=== PATIENT | female | born 1940 | race Caucasian/White ===

== ENCOUNTER 2018-02-25 03:45 | Inpatient (IN) | payer SELFPAY ==
[~2018-02-25] VITALS: Ht 165.1 cm; Wt 62.0 kg
[2018-02-25 05:07] LABS: BASOPHIL % 0.2 % (0-2); PLATELET COUNT 168 x10^3mcL (130-400)
[2018-02-25 05:49] LABS: CARBON DIOXIDE 21.8 mmol/L (21-32); CHLORIDE SERUM 91 mmol/L (98-107); GLUCOSE SERUM 222 mg/dL (74-106); POTASSIUM SERUM 4.4 mmol/L (3.5-5.1); TOTAL PROTEIN, SERUM 7.2 g/dL (6.4-8.2)
[2018-02-25 05:51] LABS: AST/SGOT 23 U/L (15-37); BILIRUBIN TOTAL 0.58 mg/dL (0.20-1.00); CALCIUM 9.2 mg/dL (8.5-10.1)
[2018-02-25 05:52] LABS: ALKALINE PHOSPHATASE 180 U/L (46-116); ALT/SGPT 43 U/L (14-59); LIPASE 253 IU/L (73-393)
[2018-02-25] MEDS ORDERED: LOSARTAN POTASS50 M1 PO (06:43)
[2018-02-25] MEDS ORDERED: HALCION0.25 MG PO (06:43)
[2018-02-25] MEDS ORDERED: CITALOPRAM HYDR20 M1 PO (06:44)
[2018-02-25] MEDS ORDERED: METFORMIN HCL850 MG PO (06:44)
[2018-02-25] MEDS ORDERED: TEGRETOL200 MG PO (06:44)
[2018-02-25 07:44] VITALS: Ht 165.1 cm; Wt 62.0 kg
[2018-02-25 07:49] LABS: CHOLESTEROL/HDL RATIO 3.4; MAGNESIUM 1.5 mg/dL (1.8-2.4); PHOSPHOROUS 3.4 mg/dL (2.5-4.9)
[2018-02-25 08:06] LABS: FREE T4 1.04 ng/dL (0.76-1.46); FREE THYROXINE INDEX 2.3 ug/dL (1.4-4.5); T4(THYROXINE) 6.9 ug/dL (4.7-13.3)
[2018-02-25 08:11] LABS: T3 TOTAL 0.97 ng/mL
[2018-02-25 09:03] VITALS: BP 111/53
[2018-02-25 09:54] LABS: BASOPHIL % 0 % (0-2); PLATELET COUNT 132 x10^3mcL (130-400); RED CELL DISTRIBUTION WIDTH 14.1 % (11.5-14.5)
[2018-02-25 12:03] VITALS: BP 95/43
[2018-02-25 13:14] LABS: CALCIUM 8.7 mg/dL (8.5-10.1); CARBON DIOXIDE 23.7 mmol/L (21-32); CHLORIDE SERUM 98 mmol/L (98-107); CREATININE SERUM 0.8 mg/dL (0.6-1.0); GLUCOSE SERUM 194 mg/dL (74-106); POTASSIUM SERUM 4.9 mmol/L (3.5-5.1); SODIUM SERUM 129 mmol/L (136-145)
[2018-02-25 14:37] LABS: SODIUM SERUM 121 mmol/L (136-145)
[2018-02-25 16:58] VITALS: BP 139/65
[2018-02-25 18:17] VITALS: BP 118/45
[2018-02-25 18:57] LABS: BASOPHIL % 0.4 % (0-2); PLATELET COUNT 150 x10^3mcL (130-400); RED CELL DISTRIBUTION WIDTH 14.4 % (11.5-14.5)
[2018-02-25 20:07] VITALS: BP 89/53
[2018-02-26 05:27] VITALS: BP 114/52
[2018-02-26 07:47] LABS: CALCIUM 7.8 mg/dL (8.5-10.1); CARBON DIOXIDE 23.1 mmol/L (21-32); CHLORIDE SERUM 101 mmol/L (98-107); CREATININE SERUM 0.7 mg/dL (0.6-1.0); GLUCOSE SERUM 106 mg/dL (74-106); MAGNESIUM 1.7 mg/dL (1.8-2.4); SODIUM SERUM 132 mmol/L (136-145)
[2018-02-26 07:53] LABS: BASOPHIL % 0.2 % (0-2); PLATELET COUNT 133 x10^3mcL (130-400)
[2018-02-26 07:57] LABS: RED CELL DISTRIBUTION WIDTH 14.7 % (11.5-14.5)
[2018-02-26 08:20] VITALS: BP 124/56
[2018-02-26 13:24] VITALS: BP 103/53
[2018-02-26 17:39] VITALS: BP 93/46
[2018-02-26 21:12] VITALS: BP 97/41
[2018-02-27 04:48] VITALS: BP 135/54
[2018-02-27 07:01] LABS: CALCIUM 8.5 mg/dL (8.5-10.1); CARBON DIOXIDE 21.3 mmol/L (21-32); CHLORIDE SERUM 102 mmol/L (98-107); CREATININE SERUM 0.7 mg/dL (0.6-1.0); GLUCOSE SERUM 201 mg/dL (74-106); MAGNESIUM 1.5 mg/dL (1.8-2.4); PHOSPHOROUS 2.9 mg/dL (2.5-4.9); POTASSIUM SERUM 3.8 mmol/L (3.5-5.1); SODIUM SERUM 132 mmol/L (136-145)
[2018-02-27 07:04] LABS: BASOPHIL % 0.5 % (0-2)
[2018-02-27 07:44] LABS: BILIRUBIN DIRECT 0.11 mg/dL (0.0-0.2); BILIRUBIN TOTAL 0.34 mg/dL (0.20-1.00)
[2018-02-27 07:45] LABS: ALBUMIN 2.5 g/dL (3.4-5.0); TOTAL PROTEIN, SERUM 5.8 g/dL (6.4-8.2)
[2018-02-27 08:39] VITALS: BP 115/47
[2018-02-27 08:48] LABS: PLATELET COUNT 122 x10^3mcL (130-400)
[2018-02-27 12:37] VITALS: BP 118/46
[2018-02-27] MEDS ORDERED: FER300 PO (14:17)
[2018-02-27] MEDS ORDERED: LAC30L PO (14:21)
[2018-02-27] MEDS ORDERED: IND20 PO (14:22)
[2018-02-27] MEDS ORDERED: PROTONIX40 MG/Pac1 PO (14:24)
[2018-02-27] MEDS ORDERED: GLIMEPIRIDE2 M1 PO (14:34)
[2018-02-27] MEDS ORDERED: VITAMIN C PURE500 MG PO (14:36)
[2018-02-27 15:54] VITALS: BP 118/46
== END 2018-02-27 18:15 | disposition home or self-care (01) | DRG 432 ==
LOC: ED 03:45 → DU 05:01 → IC 05:01 → DU 18:00
PROVIDERS: Emergency Medicine; Internal Medicine; Internal Medicine Gastroenterology
PROC: 06L38CZ Occlusion of Esophageal Vein with Extraluminal Device, Via Natural or Artificial Opening Endoscopic (ICD-10-PCS; principal; 2018-02-25 12:30)
DX: K74.60 Unspecified cirrhosis of liver (principal); I85.01 Esophageal varices with bleeding; N17.0 Acute kidney failure with tubular necrosis; E43 Unspecified severe protein-calorie malnutrition; E87.1 Hypo-osmolality and hyponatremia; Z68.1 Body mass index [BMI] 19.9 or less, adult; I10 Essential (primary) hypertension; E11.65 Type 2 diabetes mellitus with hyperglycemia; E83.42 Hypomagnesemia; Z90.710 Acquired absence of both cervix and uterus; Z79.84 Long term (current) use of oral hypoglycemic drugs; D64.9 Anemia, unspecified; D69.6 Thrombocytopenia, unspecified
CPT/HCPCS: 43235; 82962; 83880; 84439; 90732; C9113; J0171; J1200; J1610; J2060; J2250; J2310; J2354; J2405; J2765; J3010; J3475; J3490; J7030; J7040; J7050; Q0092